=== PATIENT | female | born 1995 | race African-American/Black ===

== ENCOUNTER 2018-10-15 21:13 | Emergency (ER) | payer BC, SELFPAY ==
[2018-10-15] MEDS ORDERED: Ondansetron ODT 4 MG TAB ONE (21:22)
[2018-10-15 21:40] LABS: #Lymphocytes 0.6 thou/uL (1.20-3.40); #Monocytes 0.3 thou/uL (0.11-0.59); #Neutrophils 6.7 thou/uL (1.40-6.50); %Basophils 0.3 % (0.0-1.0); %Eosinophils 0.3 % (0.0-10.0); %Lymphocytes 7.8 % (21.0-51.0); %Monocytes 3.8 % (0.0-10.0); %Neutrophils 87.8 % (42.0-75.0); Hemoglobin 12.9 g/dL (12.0-16.0); Mean Corpuscular HGB CONC 32.5 g/dL (32.0-36.0); Mean Corpuscular Hemoglobin 26.6 pg (27.0-31.0); Mean Corpuscular Volume 81.8 fL (78.0-98.0); Mean Platelet Volume 9.4 fL (7.4-10.4); Platelet Count 265 thou/uL (130-400); RBC Distribution Width 14.3 % (11.5-14.5); Red Blood Cell (RBC) Count 4.85 mill/uL (4.20-5.40); White Blood Cell (WBC) Count 7.6 thou/uL (4.8-10.8)
[2018-10-15 21:43] LABS: Bilirubin Negative (Negative); Blood, Urine Moderate (Negative); Clarity CLEAR (Clear); Glucose, Urine (Dipstick) Negative (Negative); Leukocyte Negative (Negative); Nitrite Negative (Negative); Protein, Urine (Dipstick) 30 mg/dL (Neg-Trace); Specific Gravity, Urine 1.029 (1.002-1.036); Urobilinogen 0.2 mg/dL (0.2-1.0); pH, Urine 6.5 (5.0-9.0)
[2018-10-15 21:44] LABS: Bacteria/HPF None Seen HPF (None Seen); Hyaline Casts/LPF 7-10 HYALINE CAST LPF (0-3 Hyaline); Pathc Cast-AUWi Flag 1.45 (0-2.49); Pregnancy Test - Urine (BHCG) Negative (Negative); Pregu Control Background? CLEAR/WHITE (CLR/WHITE); Pregu Control Bar Appear? YES (CONTROL BAR); RBC/HPF 21-50 HPF (0-3); Specific Gravity 1.029 (1.002-1.036); WBC/HPF 0-3 HPF (0-3)
[2018-10-15 22:06] LABS: ALT (SGPT) 8 U/L (8-55); AST (SGOT) 16 U/L (5-34); Albumin 4.7 g/dL (3.5-5.0); Alkaline Phosphatase 71 U/L (40-150); Anion Gap 17 mmol/L (10-20); BUN (Urea Nitrogen) 6 mg/dL (7.0-18.7); Bilirubin, Total 0.4 mg/dL (0.2-1.2); Calc. Creatinine Clearance 0 mL/min (70-130); Carbon Dioxide 20 mmol/L (22-29); Chloride 105 mmol/L (98-107); Estimated GFR-MDRD Greater than 90; Globulin 3.4 g/dL (2.4-3.5); Glucose 127 mg/dL (70-105); Lipase 19 U/L (8-78); Potassium 3.6 mmol/L (3.5-5.1); Protein, Total 8.1 g/dL (6.0-8.3); Sodium 138 mmol/L (136-145)
[2018-10-16] MEDS ORDERED: Dicyclomine 20 MG TAB ONE (00:17)
== END 2018-10-16 01:05 | disposition home or self-care (01) ==
LOC: ERS 21:13
DX: R10.13 Epigastric pain (principal); R11.2 Nausea with vomiting, unspecified
CPT/HCPCS: 36415; 80053; 81003; 81015; 81025; 83690; 85025; 93005; Q0162

== ENCOUNTER 2019-03-02 19:06 | Emergency (ER) | payer BC ==
[2019-03-02] MEDS ORDERED: Ondansetron ODT 4 MG TAB ONE (20:08)
[2019-03-02 20:38] LABS: Bilirubin Small (Negative); Blood, Urine Negative (Negative); Glucose, Urine (Dipstick) Negative (Negative); Leukocyte Negative (Negative); Nitrite Negative (Negative); Protein, Urine (Dipstick) 30 mg/dL (Neg-Trace); Urobilinogen 0.2 mg/dL (Less than 2)
[2019-03-02 20:44] LABS: Clarity Hazy (Clear)
[2019-03-02 20:46] LABS: Bacteria/HPF 1+ HPF (None Seen); RBC/HPF 0-3 HPF (0-3); WBC/HPF 0-3 HPF (0-3); Yeast-Budding None Seen HPF (None Seen)
== END 2019-03-02 21:00 | disposition home or self-care (01) ==
LOC: ERS 19:06
DX: O21.9 Vomiting of pregnancy, unspecified (principal); O99.89 Other specified diseases and conditions complicating pregnancy, childbirth and the puerperium; R19.7 Diarrhea, unspecified; Z3A.16 16 weeks gestation of pregnancy
CPT/HCPCS: 81003; 81015; 87086; 96360; Q0162

== ENCOUNTER 2019-03-22 13:55 | Outpatient (CLI) | payer BC ==
--- NOTE | 2019-03-22 17:08 | ULT ---
OB ULTRASOUND: HISTORY: Anatomy, size and dates. FINDINGS: A single live intrauterine gestation is seen with measurements corresponding to an estimated gestatio nal age of 19 weeks 0 days and NILSON at 08/16/2019. Estimated weight measures 278 gm or 10 ounces (19th percentile by Hadlock criteria). measurements are as follows: BPD 4.00 cm, 18 weeks 2 days HC 16.00 cm, 18 weeks 6 days AC 13.99 cm, 19 weeks 3 days FL 2.96 cm, 19 weeks 1 day heart rate measures 163 b.p.m. Amniotic fluid is adequate. Placenta is anteriorly located wit hout evidence of placenta previa. The cervical length measures 2.8 cm. A 4-chamber heart is not well seen due to position. A 3-essel cord, cord insertion, kidneys, bladder, stomach, lateral ventricles, cerebellum, blad lewis, spine, lips/nose, upper and lower extremities are visualized and demonstrate no definite a nomalies. IMPRESSION: Single live intrauterine of 19 weeks 0 days and an estimated gestational age and estimated date of delivery at 08/16/2019. POS: [facility]
== END 2019-03-22 13:56 | disposition home or self-care (01) ==
LOC: BICULT 13:55
PROVIDERS: ATTEND Family Medicine
DX: O09.292 Supervision of pregnancy with other poor reproductive or obstetric history, second trimester (principal); Z3A.19 19 weeks gestation of pregnancy
CPT/HCPCS: 76805

== ENCOUNTER 2019-05-30 16:27 | Inpatient (IN) | payer BC ==
[2019-05-30] MEDS ORDERED: Docusate 100 MG CAP PO PRN (17:00)
[2019-05-30 17:22] VITALS: BMI 26.7
[2019-05-30] MEDS ORDERED: FLU VACC QS2019-20(6MOS UP)/PF 60 MCG/0.5 ML SYRINGE IM ONE (17:30)
[2019-05-30] MEDS: Betamet Acet/Betamet Na Ph 30 MG/5 ML VIAL IM SCH (17:53)
[2019-05-30 17:56] LABS: Creatinine, Urine 204.58 mg/dL (47-110)
--- NOTE | 2019-05-30 18:13 | ULT ---
Limited Obstetrical ultrasound: Umbilical artery Doppler ultrasound with color flow: 11/16/2018 COMPARISON: None HISTORY: Hypertension TECHNIQUE: Multiplanar grayscale sonographic imaging of the gravid uterus obtained. FINDINGS: A single live intrauterine gestation in a vertex lie is demonstrated, with sonographic imag ing corresponding to 28 week gestation placing estimated date of delivery of 08/22/2019. Stated clinical dates are 29 weeks 4 days. Estimated weight is 1086 g placing the fetus at the 2nd per centile by Hadlock criteria. cardiac activity is documented at 162 bpm. RADHA measures 17.1. Placenta is located anteriorly. Umbilical artery Doppler interrogation is performed with a peak systolic velocity measuring 95.9 cm/s and a maximum RI of 0.8, and a maximum PI of 1.4. IMPRESSION: Single, live intrauterine gestation as detailed above. Transcribed Date/Time: 05/30/2019 6:22 PM
--- NOTE | 2019-05-30 18:14 | ULT ---
Please reference the concurrently limited OB ultrasound for details regarding umbilical artery Dopple r evaluation. Transcribed Date/Time: 05/30/2019 6:21 PM
[2019-05-30] MEDS: hydrALAZINE 20 MG/ML VIAL SLOW IVP PRN ×2 (18:32→19:57)
[2019-05-30 18:59] LABS: #Lymphocytes 1.4 thou/uL (1.20-3.40); #Monocytes 0.9 thou/uL (0.11-0.59); #Neutrophils 5.5 thou/uL (1.40-6.50); %Basophils 0.4 % (0.0-1.0); %Eosinophils 0.4 % (0.0-10.0); %Lymphocytes 17.5 % (21.0-51.0); %Monocytes 11.9 % (0.0-10.0); %Neutrophils 69.8 % (42.0-75.0); Hemoglobin 10.6 g/dL (12.0-16.0); Mean Corpuscular HGB CONC 32.6 g/dL (32.0-36.0); Mean Corpuscular Hemoglobin 26.6 pg (27.0-31.0); Mean Corpuscular Volume 81.6 fL (78.0-98.0); Mean Platelet Volume 12.3 fL (7.4-10.4); Platelet Count 153 thou/uL (130-400); RBC Distribution Width 13.7 % (11.5-14.5); Red Blood Cell (RBC) Count 3.99 mill/uL (4.20-5.40); White Blood Cell (WBC) Count 7.8 thou/uL (4.8-10.8)
[2019-05-30] MEDS ORDERED: hydrALAZINE 20 MG/ML VIAL SLOW IVP SCH (19:00)
[2019-05-30 19:15] LABS: Hypochromia SLIGHT = 6-15 cells (100X) (0-5/hpf); Large Platelets SLIGHT; MDiff Complete? YES; Platelet Morphology Comment Appears Adequate; Polychromasia SLIGHT = 2-3 cells (100X) (0-2/hpf)
[2019-05-30 19:17] LABS: ALT (SGPT) 13 U/L (8-55); AST (SGOT) 22 U/L (5-34); Albumin 3.4 g/dL (3.5-5.0); Alkaline Phosphatase 94 U/L (40-110); Anion Gap 11 mmol/L (10-20); BUN (Urea Nitrogen) 10 mg/dL (7.0-18.7); Bilirubin, Total 0.2 mg/dL (0.2-1.2); Calc. Creatinine Clearance 151 mL/min (70-130); Calcium 8.5 mg/dL (7.8-10.44); Carbon Dioxide 23 mmol/L (22-29); Chloride 106 mmol/L (98-107); Estimated GFR-MDRD Greater than 90; Globulin 2.7 g/dL (2.4-3.5); Glucose 67 mg/dL (70-105); Potassium 4.1 mmol/L (3.5-5.1); Protein, Total 6.1 g/dL (6.0-8.3); Sodium 136 mmol/L (136-145); Uric Acid 4.8 mg/dL (2.6-6.0)
[2019-05-30 19:21] LABS: INR-International Normal Ratio 0.9; PTT 31.5 SEC (22.9-36.1); Prothrombin Time 12.6 SEC (12.0-14.7)
[2019-05-30] MEDS: Acetaminophen 500 MG TAB PO PRN (19:56)
[2019-05-30] MEDS ORDERED: Magnesium Sulfate 20 gm/500 ml 20 GM/500 ML BAG ONE (20:04)
--- NOTE | 2019-05-30 20:44 | ULT ---
Ultrasound biophysical profile CLINICAL HISTORY: Preeclampsia, growth restriction FINDINGS: Biophysical profile score is performed, with a score of 0 for breathing, and a score of 2 for tone, movement and amniotic fluid. Total score is 6/8. cardiac activity is documented at 160 bpm. Fetus is demonstrated in a vertex lie. IMPRESSION: Biophysical profile score, 6/8. Absence of breathing movements. Findings were conve yed by the beam warper to the patient's nurse on the hospital floor, [facility], at the time of the exam. Transcribed Date/Time: 05/30/2019 8:46 PM
[2019-05-30] MEDS ORDERED: Calcium Gluc 4.6 MEQ/10 ML (100 MG/ML) SLOW IVP PRN (20:45)
[2019-05-30] MEDS ORDERED: Magnesium Sulfate 20 GM/WATER 500 ML BAG IVPB SCH (20:45)
[2019-05-31] MEDS: Lactated Ringer's 1,000 ML IV SCH ×2 (03:05→17:10)
[2019-05-31] MEDS: Magnesium Sulfate 20 gm/500 ml 20 GM/500 ML BAG IVPB SCH ×2 (04:15→13:57)
[2019-05-31] MEDS: Acetaminophen 500 MG TAB PO PRN (04:18)
--- NOTE | 2019-05-31 09:59 | ULT ---
Biophysical profile 05/31/2019 COMPARISON: 05/30/2019 HISTORY: Growth restriction, preeclampsia TECHNIQUE: Multiplanar grayscale sonographic imaging of the gravid uterus obtained. FINDINGS: Single live intrauterine gestation present with a vertex presentation. Cervical length is 3 cm. heart rate is 126-127 bpm. Amniotic fluid index is 17.2 cm. tone, movement, and amniotic fluid scored 2 out of 2. breathing is 0 out of 2 for a 6 out of 8 biophysical profile, stable when compared to the 05/30/2019 examination. IMPRESSION: Single intrauterine gestation as detailed above. Stable 6/8 biophysical profile. The performing pottery decorator reported this information to the covering RN, Angelic, at the time of the exa m.
[2019-05-31] MEDS: Betamet Acet/Betamet Na Ph 30 MG/5 ML VIAL IM SCH (17:10)
[2019-06-01] MEDS: Magnesium Sulfate 20 gm/500 ml 20 GM/500 ML BAG IVPB SCH ×2 (00:26→11:34)
[2019-06-01] MEDS: hydrALAZINE 20 MG/ML VIAL SLOW IVP PRN ×3 (02:51→17:40)
[2019-06-01] MEDS: Acetaminophen 500 MG TAB PO PRN ×3 (03:52→19:37)
[2019-06-01 06:03] LABS: #Lymphocytes 0.5 thou/uL (1.20-3.40); #Monocytes 0.7 thou/uL (0.11-0.59); #Neutrophils 10.4 thou/uL (1.40-6.50); %Basophils 0.2 % (0.0-1.0); %Eosinophils 0.1 % (0.0-10.0); %Lymphocytes 4.2 % (21.0-51.0); %Monocytes 6.1 % (0.0-10.0); %Neutrophils 89.3 % (42.0-75.0); Hemoglobin 11.9 g/dL (12.0-16.0); Mean Corpuscular Hemoglobin 27.2 pg (27.0-31.0); Mean Platelet Volume 11.6 fL (7.4-10.4); PTT 26.9 SEC (22.9-36.1); Platelet Count 189 thou/uL (130-400); RBC Distribution Width 13.8 % (11.5-14.5); Red Blood Cell (RBC) Count 4.36 mill/uL (4.20-5.40); White Blood Cell (WBC) Count 11.7 thou/uL (4.8-10.8)
[2019-06-01 06:30] LABS: ALT (SGPT) 11 U/L (8-55); AST (SGOT) 15 U/L (5-34); Albumin 3.2 g/dL (3.5-5.0); Alkaline Phosphatase 96 U/L (40-110); Anion Gap 11 mmol/L (10-20); BUN (Urea Nitrogen) 8 mg/dL (7.0-18.7); Bilirubin, Total Less than 0.2 mg/dL (0.2-1.2); Calc. Creatinine Clearance 159 mL/min (70-130); Calcium 5.9 mg/dL (7.8-10.44); Carbon Dioxide 19 mmol/L (22-29); Chloride 106 mmol/L (98-107); Estimated GFR-MDRD Greater than 90; Globulin 3.2 g/dL (2.4-3.5); Glucose 114 mg/dL (70-105); Magnesium 7.7 mg/dL (1.6-2.6); Potassium 4.1 mmol/L (3.5-5.1); Protein, Total 6.4 g/dL (6.0-8.3); Sodium 132 mmol/L (136-145)
[2019-06-01] MEDS ORDERED: NIFEdipine XL 30 MG TAB PO SCH ×2 (09:32→09:45)
[2019-06-01] MEDS: Lactated Ringer's 1,000 ML IV SCH (17:44)
[2019-06-01] MEDS ORDERED: Ondansetron PF 4 MG/2 ML Vial ONE (20:28)
[2019-06-01] MEDS ORDERED: Ondansetron PF 4 MG/2 ML Vial SLOW IVP PRN (20:39)
[2019-06-02] MEDS: hydrALAZINE 20 MG/ML VIAL SLOW IVP PRN (02:50)
[2019-06-02] MEDS ORDERED: NIFEdipine XL 30 MG TAB PO SCH (09:00)
[2019-06-03] MEDS: hydrALAZINE 20 MG/ML VIAL SLOW IVP PRN ×7 (02:30→17:14)
[2019-06-03 06:38] LABS: Hemoglobin 11.9 g/dL (12.0-16.0); Mean Corpuscular HGB CONC 31.7 g/dL (32.0-36.0); Mean Corpuscular Hemoglobin 25.6 pg (27.0-31.0); Mean Corpuscular Volume 80.8 fL (78.0-98.0); Mean Platelet Volume 11.3 fL (7.4-10.4); Platelet Count 199 thou/uL (130-400); RBC Distribution Width 13.9 % (11.5-14.5); Red Blood Cell (RBC) Count 4.64 mill/uL (4.20-5.40); White Blood Cell (WBC) Count 9.2 thou/uL (4.8-10.8)
[2019-06-03 06:50] LABS: ALT (SGPT) 10 U/L (8-55); AST (SGOT) 21 U/L (5-34); Albumin 2.9 g/dL (3.5-5.0); Alkaline Phosphatase 85 U/L (40-110); Anion Gap 10 mmol/L (10-20); BUN (Urea Nitrogen) 11 mg/dL (7.0-18.7); Bilirubin, Total Less than 0.2 mg/dL (0.2-1.2); Calc. Creatinine Clearance 159 mL/min (70-130); Calcium 7.6 mg/dL (7.8-10.44); Carbon Dioxide 18 mmol/L (22-29); Chloride 108 mmol/L (98-107); Estimated GFR-MDRD Greater than 90; Globulin 3.2 g/dL (2.4-3.5); Glucose 75 mg/dL (70-105); Potassium 4.3 mmol/L (3.5-5.1); Protein, Total 6.1 g/dL (6.0-8.3); Sodium 132 mmol/L (136-145)
[2019-06-03] MEDS: Acetaminophen 500 MG TAB PO PRN ×2 (13:15→20:19)
--- NOTE | 2019-06-03 15:01 | ULT ---
ULTRASOUND OBSTETRICAL COMPLETE: 06/03/2019 HISTORY: A 23-year-old female in third trimester of with pre-eclampsia. FINDINGS: number: Gay. lie: Cephalic. Maternal cervix: 3 cm in length and closed. Placenta: Anterior. No placenta previa. Amniotic fluid volume: RADHA 17 cm heart rate: 144 bpm The following anatomy is visualized, with no evidence of anomalies: Head, four chamber heart, stomach, cord insertion and three vessel cord. The rest of the anatomy is not visualized. biometry: Head circumference (HC): 26.0 cm 28w 1d Biparietal diameter (BPD): 7.2 cm 28w 2d Abdominal circumference (AC): 21.6 cm 26w 0d Femur length (FL): 5.3 cm 28w 1d Average ultrasound age (AUA): 27w 4d Estimated date of confinement (EDC): 08/29/2019 Last menstrual period (LMP): 11/04/2018 Gestational age by LMP: 30w 1d Estimated weight (EFW): 1031 g, +/- 153 g (2 lb 4 oz, +/- 5 oz) BIOPHYSICAL PROFILE: tone: 2 breathin movements: 2 Amniotic fluids: 2 UMBILICAL ARTERY: PEAK SYSTOLIC VELOCITY, END DIASTOLIC VELOCITY, S/D RATIOS AND RESISTIVE INDICES: At placenta: 61, 24, 2.5, 0.9 Mid: 65, 30, 2.2, 0.55 At fetus: 58, 19, 3.0, 0.67 IMPRESSION: 1. Live late second/early third trimester intrauterine gestation. 2. Estimated gestational age of 27 weeks, 4 days. 3. Cephalic lie. 4. Normal biophysical profile score of 8/8, excluding the nonstress test. 5. Umbilical artery values as given above. 6. The gestational age established on this study is discrepant with that established by last menstrua l period by almost three weeks, and discrepant with the ultrasound study of 05/30/2019 by one week. SHELLIE Veras POS: [facility]
--- NOTE | 2019-06-03 15:02 | ULT ---
ULTRASOUND BIOPHYSICAL PROFILE: 06/03/2019 HISTORY: A 23-year-old female in late second or early third trimester with pre-eclampsia. FINDINGS: breathin tone: 2 movement: 2 Amniotic fluid volume: 2 IMPRESSION: Normal biophysical profile score of 8/8, excluding the non-stress test. jn [] POS: [facility]
[2019-06-03] MEDS ORDERED: hydrOXYzine Pamoate 25 mg Capsule PO SCH (17:30)
[2019-06-03] MEDS: NIFEdipine XL 60 MG TAB PO SCH (18:26)
[2019-06-04] MEDS: NIFEdipine XL 60 MG TAB PO SCH (09:51)
[2019-06-04] MEDS: hydrALAZINE 20 MG/ML VIAL SLOW IVP PRN ×2 (10:12→11:02)
[2019-06-04] MEDS: Acetaminophen 500 MG TAB PO PRN ×2 (12:37→19:02)
[2019-06-04] MEDS: Ferrous Sulfate 325 MG TAB PO SCH (17:29)
[2019-06-05] MEDS: hydrALAZINE 20 MG/ML VIAL SLOW IVP PRN ×2 (00:30→09:51)
[2019-06-05] MEDS: NIFEdipine XL 60 MG TAB PO SCH (08:22)
[2019-06-05] MEDS: Acetaminophen 500 MG TAB PO PRN ×2 (13:04→23:40)
[2019-06-05] MEDS ORDERED: Promethazine HCl 25 MG/ML VIAL IM PRN (18:58)
[2019-06-05] MEDS ORDERED: CEFAZOLIN 2 GM in Premix Bag 1 BAG IVPB SCH (19:00)
[2019-06-05] MEDS ORDERED: Bicitra 30 ML UDCUP PO SCH (19:00)
[2019-06-05] MEDS: Ferrous Sulfate 325 MG TAB PO SCH (19:03)
[2019-06-05 23:40] LABS: INR-International Normal Ratio 0.9; Prothrombin Time 12.2 SEC (12.0-14.7)
[2019-06-05 23:41] LABS: PTT 31.6 SEC (22.9-36.1)
[2019-06-05] MEDS ORDERED: Magnesium Sulfate 20 GM/WATER 500 ML BAG IVPB SCH (23:45)
[2019-06-05 23:49] LABS: Hemoglobin 13.2 g/dL (12.0-16.0); Mean Corpuscular HGB CONC 33.5 g/dL (32.0-36.0); Mean Corpuscular Hemoglobin 26.6 pg (27.0-31.0); Mean Corpuscular Volume 79.5 fL (78.0-98.0); Mean Platelet Volume 10.3 fL (7.4-10.4); Platelet Count 152 thou/uL (130-400); RBC Distribution Width 14.2 % (11.5-14.5); Red Blood Cell (RBC) Count 4.95 mill/uL (4.20-5.40); White Blood Cell (WBC) Count 11.7 thou/uL (4.8-10.8)
[2019-06-05] MEDS: Lactated Ringer's 1,000 ML IV SCH (23:57)
[2019-06-05 23:59] LABS: ALT (SGPT) 22 U/L (8-55); AST (SGOT) 37 U/L (5-34); Albumin 2.9 g/dL (3.5-5.0); Alkaline Phosphatase 103 U/L (40-110); Anion Gap 14 mmol/L (10-20); BUN (Urea Nitrogen) 18 mg/dL (7.0-18.7); Bilirubin, Total 0.4 mg/dL (0.2-1.2); Calc. Creatinine Clearance 125 mL/min (70-130); Calcium 9.2 mg/dL (7.8-10.44); Carbon Dioxide 20 mmol/L (22-29); Chloride 107 mmol/L (98-107); Estimated GFR-MDRD Greater than 90; Globulin 3.3 g/dL (2.4-3.5); Glucose 88 mg/dL (70-105); Potassium 4.4 mmol/L (3.5-5.1); Protein, Total 6.2 g/dL (6.0-8.3); Sodium 137 mmol/L (136-145)
[2019-06-06] MEDS: Magnesium Sulfate 20 gm/500 ml 20 GM/500 ML BAG IVPB SCH ×3 (00:01→17:38)
[2019-06-06 00:18] LABS: HBSAg Index 0.16 S/CO (0-0.99); Hep B Surf Ag Non-Reactive S/CO (NonReactive)
[2019-06-06] MEDS: hydrALAZINE 20 MG/ML VIAL SLOW IVP PRN ×6 (00:20→09:36)
[2019-06-06] MEDS: NIFEdipine XL 60 MG TAB PO SCH (08:46)
[2019-06-06] MEDS: Acetaminophen 500 MG TAB PO PRN (08:53)
[2019-06-06] MEDS ORDERED: Labetalol HCl 100 MG/20 ML VIAL ONE (10:50)
[2019-06-06] MEDS: Labetalol HCl 100 MG/20 ML VIAL SLOW IVP SCH ×2 (11:27→11:38)
[2019-06-06] MEDS ORDERED: MORPHINE 5 MG/10 ML PF VIAL ONE (11:45)
[2019-06-06] MEDS ORDERED: Fentanyl 100 MCG/2 ML VIAL ONE (11:46)
[2019-06-06] MEDS ORDERED: Oxytocin 10 UNITS/ML VIAL ONE (11:46)
[2019-06-06] MEDS ORDERED: Ondansetron PF 4 MG/2 ML Vial ONE (11:46)
[2019-06-06] MEDS ORDERED: ePHEDrine/0.9% NaCl/PF SYRINGE 50 mg/10 ml ONE ×2 (11:46→12:28)
[2019-06-06] MEDS ORDERED: Carboprost 250 MCG/ML AMP ONE (12:29)
[2019-06-06] MEDS ORDERED: NS / Oxytocin 40 units/1000ml 1,000 ML ONE (13:10)
[2019-06-06] MEDS ORDERED: Promethazine HCl 25 MG/ML VIAL IM PRN (13:14)
[2019-06-06] MEDS ORDERED: Naloxone HCl 0.4 mg/ml Vial IV PRN (13:14)
[2019-06-06] MEDS ORDERED: diphenhydrAMINE 50 MG/ML VIAL IVP PRN (13:14)
[2019-06-06] MEDS ORDERED: L&D-Morphine 4 MG/ML VIAL SLOW IVP PRN (13:14)
[2019-06-06] MEDS ORDERED: Naloxone HCl 0.4 mg/ml Vial IVP PRN ×2 (13:14)
[2019-06-06] MEDS ORDERED: Promethazine HCl 25 MG SUPP PR PRN (13:14)
[2019-06-06] MEDS ORDERED: Ondansetron HCl/PF 4 MG/2 ML Vial IVP PRN (13:14)
[2019-06-06] MEDS ORDERED: Ketorolac Tromethamine 30 MG/ML VIAL IVP PRN (13:14)
[2019-06-06] MEDS ORDERED: Meperidine HCl/PF 25 MG/ML VIAL SLOW IVP PRN (13:14)
[2019-06-06] MEDS ORDERED: HYDROmorphone 2 MG/ML VIAL SLOW IVP PRN (13:14)
[2019-06-06] MEDS ORDERED: Ondansetron PF 4 MG/2 ML Vial IVP PRN (13:14)
[2019-06-06] MEDS ORDERED: Communication Order-Pharmacy FS SCH (13:15)
[2019-06-06] MEDS ORDERED: Ketorolac Tromethamine 30 MG/ML VIAL IVP SCH (13:15)
[2019-06-06] MEDS ORDERED: Ketorolac Tromethamine 30 MG/ML VIAL ONE (15:48)
[2019-06-06 16:51] LABS: Syphilis Antibody Nonreactive (Nonreactive); Syphilis Antibody Index 0.04 S/CO (<1.00 Non-Reactive)
[2019-06-07] MEDS: Lactated Ringer's 1,000 ML IV SCH ×3 (03:15→14:03)
[2019-06-07] MEDS: Magnesium Sulfate 20 gm/500 ml 20 GM/500 ML BAG IVPB SCH (03:15)
[2019-06-07] MEDS: hydrALAZINE 20 MG/ML VIAL SLOW IVP PRN (05:39)
[2019-06-07] MEDS ORDERED: Lanolin Ointment 7 GM TUBE TOP PRN (07:36)
[2019-06-07] MEDS ORDERED: Ondansetron PF 4 MG/2 ML Vial IVP PRN (07:36)
[2019-06-07] MEDS ORDERED: Meperidine HCl/PF 25 MG/ML VIAL IM PRN (07:36)
[2019-06-07] MEDS ORDERED: Bisacodyl 10 MG SUPP PR PRN (07:36)
[2019-06-07] MEDS ORDERED: diphenhydrAMINE 25 MG CAP PO PRN (07:36)
[2019-06-07] MEDS ORDERED: Promethazine HCl 25 MG/ML VIAL IM PRN (07:36)
[2019-06-07] MEDS ORDERED: NS / Oxytocin 40 units/1000ml 1,000 ML IV SCH (07:36)
[2019-06-07] MEDS ORDERED: Calcium Gluconate 4.6 MEQ in Sodium Chloride 0.9% 100 ML IVPB PRN (07:36)
[2019-06-07] MEDS ORDERED: hydrALAZINE 20 MG/ML VIAL SLOW IVP PRN (07:46)
[2019-06-07] MEDS ORDERED: Adacel (T-DAP) 0.5 ML SYRINGE IM ONE (09:00)
[2019-06-07] MEDS: Docusate Calcium (SURFAK) 240 MG CAP PO SCH ×3 (09:19→20:38)
[2019-06-07] MEDS: Prenatal Vitamin 1 TAB PO SCH (09:19)
[2019-06-07] MEDS: Ibuprofen 800 MG TAB PO SCH ×2 (11:51→20:38)
[2019-06-07] MEDS: Ferrous Sulfate 325 MG TAB PO SCH ×3 (11:58→13:54)
[2019-06-07] MEDS: HYDROcodone/Acetaminophen 5/325 mg Tablet PO PRN ×2 (12:57→22:17)
[2019-06-08] MEDS: Ferrous Sulfate 325 MG TAB PO SCH ×3 (00:54→22:19)
[2019-06-08] MEDS: Ibuprofen 800 MG TAB PO SCH ×4 (04:39→22:16)
[2019-06-08] MEDS: Prenatal Vitamin 1 TAB PO SCH (09:25)
[2019-06-08] MEDS: Simethicone Chewable 80 MG TAB PO PRN (09:25)
[2019-06-08] MEDS: Docusate Calcium (SURFAK) 240 MG CAP PO SCH ×2 (09:25→22:16)
[2019-06-08] MEDS: cloNIDine 0.1 MG TAB PO PRN (10:44)
[2019-06-09] MEDS: Ibuprofen 800 MG TAB PO SCH ×3 (02:00→18:09)
[2019-06-09] MEDS: HYDROcodone/Acetaminophen 5/325 mg Tablet PO PRN ×2 (02:02→19:54)
[2019-06-09] MEDS: cloNIDine 0.1 MG TAB PO PRN ×2 (08:19→19:54)
[2019-06-09] MEDS: Losartan/Hydrochlorothiazide 100 mg/25 mg Tablet PO SCH (10:00)
[2019-06-09] MEDS: Prenatal Vitamin 1 TAB PO SCH (10:01)
[2019-06-09] MEDS: Docusate Calcium (SURFAK) 240 MG CAP PO SCH ×2 (10:01→19:54)
[2019-06-09] MEDS: Ferrous Sulfate 325 MG TAB PO SCH ×2 (10:02→23:12)
[2019-06-09] MEDS: Simethicone Chewable 80 MG TAB PO PRN (19:54)
[2019-06-10] MEDS: Ibuprofen 800 MG TAB PO SCH ×2 (00:22→08:50)
[2019-06-10] MEDS: cloNIDine 0.1 MG TAB PO PRN ×2 (05:32→08:51)
[2019-06-10] MEDS: Ferrous Sulfate 325 MG TAB PO SCH (08:50)
[2019-06-10] MEDS: Docusate Calcium (SURFAK) 240 MG CAP PO SCH (08:50)
[2019-06-10] MEDS: Prenatal Vitamin 1 TAB PO SCH (08:51)
[2019-06-10] MEDS: Losartan/Hydrochlorothiazide 100 mg/25 mg Tablet PO SCH (08:51)
[2019-06-10 11:34] VITALS: TEMP 97.9
[2019-06-10 11:51] VITALS: BP 144/98
--- NOTE | 2019-06-11 11:30 | OP ---
DATE OF PROCEDURE: 06/06/2019 RESIDENT SURGEON: Isha Gallegos DO. PROCEDURE PERFORMED: Repeat low-transverse section. PREOPERATIVE DIAGNOSES: 1. Intrauterine growth restriction. 2. Pre-E with severe features. 3. Prior section x1. 4. . POSTOPERATIVE DIAGNOSES: 1. , delivered. 2. Intrauterine growth restriction. 3. Pre-E with severe features. 4. Prior section x1. ANESTHESIA: Spinal. INDICATIONS: This is a 23-year-old, G2, P0-1-0-1 that initially presented at 29 and 4 weeks to Labor and Delivery with a severe range blood pressures. She was found to have preeclampsia with severe features and was started on Magnesium. The patient was given 2 rounds of the steroids for lung maturity. growth was noted to be restricted at 28 weeks with head circumference of 4% with BPD of 13%, abdominal circumference of 2%, femur length of 2% and estimated weight of 1.086 kg at that time. The patient was kept on Labor and Delivery and treated with magnesium for severe range pressures as well as a neuro protection. She required several doses of p.r.n. medications during the course of her stay. Decision was made to proceed with a delivery given the patient's elevated blood pressures. Don team was consulted and was presented for delivery. DESCRIPTION OF PROCEDURE: After risks, benefits, and alternatives were explained to the patient, she gave informed consent. Preoperative antibiotics included cefazolin 2 g. The patient was taken to the operating room, and spinal anesthesia was initiated. She was placed in supine position with a left tilt and prepped and draped in the usual sterile fashion. A Pfannenstiel incision was made with a scalpel and carried down to the level of fascia, which was sharply nicked. The fascial cut was extended bilaterally with Alonzo scissors. Inferior and superior edges of the cut fascial edges were elevated with Donita clamps, and the underlying rectus muscles were sharply and bluntly dissected free. The recti were divided digitally and retracted manually. The peritoneum was entered bluntly and retracted manually. Bladder blade was placed. A low transverse incision was made with a scalpel. The uterus was entered in the midline with a scalpel. Clear fluid was seen. Hysterotomy was extended manually. The infant was noted to be vertex and was easily delivered by fundal pressure. Mouth and nares were bulb suctioned. Cord was clamped and cut and grossly normal female was handed to the waiting nurse. The cord blood was obtained. Placenta was delivered spontaneously with gentle traction and uterine massage. It was intact with 3-vessel cord noted and sent for Pathology. The uterus was externalized, and endometrium was curetted with dry lap. The bladder blade was replaced, and the uterus was closed with a running locking #1 Monocryl suture followed by several [id number] stitches. Following this, hemostasis was noted. Abdomen was irrigated with saline and suctioned free of clots. The uterus was internalized , and hysterotomy was again noted to be hemostatic. Peritoneum was closed using 3-0 Vicryl. The fascia was closed with running nonlocking 0 PDS suture. The subcutaneous tissue was irrigated. Bleeders were cauterized. The skin was approximated with chata and a pressure dressing was applied. All counts were correct. The patient tolerated the procedure well, was taken to the recovery room in stable condition. ESTIMATED BLOOD LOSS: 360 mL. COMPLICATIONS: None. SPECIMENS: Cord blood sent for blood type and placenta sent for Pathology. FINDINGS: Grossly normal female with Apgars of 4 and 9 at one and five minutes respectively. Placenta intact with 3-vessel cord noted and sent for pathology. DRAINS: Contreras to gravity, draining clear urine. Job ID: [id number] [facility]
== END 2019-06-10 16:05 | disposition home or self-care (01) | DRG 788 ==
LOC: L&D/OP 16:27 → L&D 18:44 → 3SW 06-07 13:39
PROVIDERS: ADMIT Family Medicine; ATTEND Family Medicine
PROC: 3E02340 Introduction of Influenza Vaccine into Muscle, Percutaneous Approach (ICD-10-PCS; 2019-05-30)
PROC: 10D00Z1 Extraction of Products of Conception, Low, Open Approach (ICD-10-PCS; principal; 2019-06-06)
DX: O14.14 Severe pre-eclampsia complicating childbirth (principal); O60.14X0 Preterm labor third trimester with preterm delivery third trimester, not applicable or unspecified; O36.5930 Maternal care for other known or suspected poor fetal growth, third trimester, not applicable or unspecified; O34.43 Maternal care for other abnormalities of cervix, third trimester; O76 Abnormality in fetal heart rate and rhythm complicating labor and delivery; Z37.0 Single live birth; Z3A.29 29 weeks gestation of pregnancy; O34.211 Maternal care for low transverse scar from previous cesarean delivery; Z23 Encounter for immunization
CPT/HCPCS: 36415; 36416; 51702; 76700; 76815; 76819; 80053; 82570; 83735; 84156; 84550; 85025; 85027; 85384; 85610; 85730; 86780; 86850; 86900; 86901; 87340; 88307; 99285; J0360; J0702; J1885; J2274; J2405; J2590; J3010; J3475; J3490; Q0177

== ENCOUNTER 2019-11-09 10:18 | Emergency (ER) | payer BC | END 2019-11-09 11:08 | disposition home or self-care (01) | LOC: ERS 10:18 | DX: R19.7 Diarrhea, unspecified (principal); R11.0 Nausea | CPT/HCPCS: 99283 ==

== ENCOUNTER 2019-12-05 13:36 | Emergency (ER) | payer BC ==
[2019-12-05 15:02] LABS: #Lymphocytes 0.6 thou/uL (1.20-3.40); #Monocytes 0.3 thou/uL (0.11-0.59); #Neutrophils 3.8 thou/uL (1.40-6.50); %Basophils 0.3 % (0.0-1.0); %Eosinophils 0.2 % (0.0-10.0); %Lymphocytes 12.9 % (21.0-51.0); %Neutrophils 80.5 % (42.0-75.0); Hemoglobin 12.3 g/dL (12.0-16.0); Mean Corpuscular HGB CONC 32.3 g/dL (32.0-36.0); Mean Corpuscular Hemoglobin 26.8 pg (27.0-31.0); Mean Corpuscular Volume 82.9 fL (78.0-98.0); Mean Platelet Volume 8.9 fL (7.4-10.4); Platelet Count 227 thou/uL (130-400); Red Blood Cell (RBC) Count 4.58 mill/uL (4.20-5.40); White Blood Cell (WBC) Count 4.7 thou/uL (4.8-10.8)
[2019-12-05 15:04] LABS: Bacteria/HPF None Seen HPF (None Seen); Bilirubin Negative (Negative); Blood, Urine 2+ (Negative); Clarity Turbid (Clear); Glucose, Urine (Dipstick) Normal (Negative); Leukocyte 25 Leu/uL (Negative); Nitrite Negative (Negative); Protein, Urine (Dipstick) 70 mg/dL (Neg-Trace); RBC/HPF Greater than 50 HPF (0-3); Urobilinogen Normal mg/dL (Less than 2)
[2019-12-05 15:24] LABS: ALT (SGPT) 9 U/L (8-55); AST (SGOT) 14 U/L (5-34); Albumin 4.1 g/dL (3.5-5.0); Alkaline Phosphatase 49 U/L (40-110); Anion Gap 13 mmol/L (10-20); BUN (Urea Nitrogen) 6 mg/dL (7.0-18.7); Bilirubin, Total 0.4 mg/dL (0.2-1.2); Calc. Creatinine Clearance 0 mL/min (70-130); Calcium 9.1 mg/dL (7.8-10.44); Carbon Dioxide 23 mmol/L (22-29); Chloride 104 mmol/L (98-107); Estimated GFR-MDRD Greater than 90; Globulin 2.9 g/dL (2.4-3.5); Glucose 76 mg/dL (70-105); Lipase 14 U/L (8-78); Potassium 3.2 mmol/L (3.5-5.1); Sodium 137 mmol/L (136-145)
[2019-12-05 15:36] LABS: BHCG - Serum POSITIVE (NEGATIVE); Pregs Control Background? CLEAR/WHITE (CLR/WHITE); Pregs Control Bar Appear? YES (CONTROL BAR)
--- NOTE | 2019-12-05 16:30 | ULT ---
Pelvic sonogram transabdominal and transvaginal imaging with duplex evaluation HISTORY: Pelvic pain. Bleeding. Positive test. FINDINGS: Urinary bladder is decompressed. Uterus is slightly retroverted. It measures up to 7.9 cm l ength. Endometrium thickened at 1.9 cm. No intrauterine gestational sac visualized. Small amount of fluid and debris within the lower uterine segment. Small amount of free fluid within the pelvis. Right ovary is 3.2 cm length and left is 3.0 cm. Each has a normal appearance with good color and spe ctral Doppler flow. IMPRESSION : Thickened endometrium. No intrauterine gestation visualized. Small amount of free fluid within the pe lvis without adnexal abnormality evident. Please consider close continued clinical and sonographic follow-up regarding quantitative beta hCG le vels and the possibility of early or ectopic .
== END 2019-12-05 18:22 | disposition home or self-care (01) ==
LOC: ERS 13:36
DX: O03.4 Incomplete spontaneous abortion without complication (principal)
CPT/HCPCS: 36415; 36416; 76856; 80053; 81003; 81015; 83690; 84702; 84703; 85025; 86900; 86901; 87480; 87491; 87510; 87591; 87660

== ENCOUNTER 2019-12-07 13:58 | Emergency (ER) | payer BC ==
--- NOTE | 2019-12-07 16:09 | ULT ---
TRANSABDOMINAL TRANSVAGINAL PELVIC ULTRASOUND DATE:: 12/07/2019 3:01 PM CLINICAL HISTORY: Rule out ectopic . COMPARISON: Prior pelvic ultrasound dated December 05, 2019 TECHNIQUE: Grayscale, color Doppler and spectral Doppler images were obtained of the pelvis see a tra nsabdominal and transvaginal approach FINDINGS: UTERUS: Size: 8.3 x 3.7 x 5.5 cm Mass: There is mixed echogenicity, nonvascularized material within the distal lower endometrial canal suspicious for hemorrhagic blood product. No intrauterine gestation identified. Cervix: There is mixed echogenicity fluid within the cervix Endometrial Thickness: 16 mm. OVARIES: Size: Right measures 2.8 x 1.9 x 1.2 cm; Left measures 2.0 x 2.1 x 2.5 cm Mass: None. Flow: Normal CUL-DE-SAC: There is mild free fluid in the cul-de-sac IMPRESSION: Mixed echogenicity, nonvascularized material within the endometrial canal of the lower uterine segmen t and upper cervix is suspicious for hemorrhage. No visible intrauterine gestational sac is present. Findings are most suspicious for a missed . Recommend continued clinical and sonogra [facility] follow-up. Mild free fluid in the cul-de-sac.
== END 2019-12-07 17:15 | disposition home or self-care (01) ==
LOC: ERS 13:58
DX: O03.9 Complete or unspecified spontaneous abortion without complication (principal)
CPT/HCPCS: 36415; 76856; 84702

== ENCOUNTER 2020-04-10 07:37 | Emergency (ER) | payer BC | END 2020-04-10 08:16 | disposition home or self-care (01) | LOC: ERS 07:37 | DX: M62.830 Muscle spasm of back (principal); M54.5 Low back pain | CPT/HCPCS: 99283 ==